=== PATIENT | male | born 1960 | race Caucasian/White ===

== ENCOUNTER 2022-07-03 07:16 | Inpatient (IN) | payer MEDICAID, OTHER ==
[2022-07-03 08:12] LABS: #Lymphocytes 0.7 thou/uL (1.20-3.40); #Monocytes 0.3 thou/uL (0.11-0.59); #Neutrophils 8.2 thou/uL (1.40-6.50); %Eosinophils 0.4 % (0.0-10.0); %Lymphocytes 7.6 % (21.0-51.0); %Monocytes 3.7 % (0.0-10.0); %Neutrophils 88.3 % (42.0-75.0); Hemoglobin 14.3 g/dL (14.0-18.0); Mean Corpuscular HGB CONC 33.7 g/dL (32.0-36.0); Mean Corpuscular Hemoglobin 32.1 pg (27.0-31.0); Mean Corpuscular Volume 95.5 fl (78.0-98.0); Mean Platelet Volume 8.2 fL (7.4-10.4); Platelet Count 147 10x3/uL (130-400); RBC Distribution Width 12.5 % (11.5-14.5); Red Blood Cell (RBC) Count 4.45 mill/uL (4.70-6.10); White Blood Cell (WBC) Count 9.3 10x3/uL (4.8-10.8)
[2022-07-03 08:32] LABS: Acetaminophen Less than 10.0 mcg/mL (10.0-30.0); Alcohol Less than 10 mg/dL (Less than 10); Salicylate Less than 8.0 mg/dL (15.0-30.0)
[2022-07-03 08:33] LABS: ALT (SGPT) 33 U/L (8-55); AST (SGOT) 26 U/L (5-34); Albumin 4.2 g/dL (3.4-4.8); Alkaline Phosphatase 121 U/L (40-110); Anion Gap 14 mmol/L (10-20); BUN (Urea Nitrogen) 14 mg/dL (8.4-25.7); Bilirubin, Total 0.7 mg/dL (0.2-1.2); Calc. Creatinine Clearance 0 mL/min (70-130); Carbon Dioxide 24 mmol/L (23-31); Chloride 104 mmol/L (98-107); Estimated GFR 95; Globulin 2.5 g/dL (2.4-3.5); Glucose 107 mg/dL (80-115); Protein, Total 6.7 g/dL (5.8-8.1); Sodium 138 mmol/L (136-145)
[2022-07-03 09:09] LABS: INR-International Normal Ratio 1.1; Prothrombin Time 14.3 sec (12.0-14.7)
[2022-07-03 09:10] LABS: PTT 29.6 sec (22.9-36.1)
[2022-07-03] MEDS ORDERED: Morphine 2 MG/ML VIAL SLOW IVP PRN (12:39)
[2022-07-03] MEDS ORDERED: Ipratropium/Albuterol 3 ML NEB NEB PRN (12:39)
[2022-07-03] MEDS ORDERED: Ondansetron PF 4 MG/2 ML Vial IVP PRN (12:39)
[2022-07-03] MEDS ORDERED: Metoprolol Tartrate 25 MG TAB ONE (13:48)
[2022-07-03] MEDS ORDERED: Acetaminophen 325 MG TAB ONE (13:48)
[2022-07-03] MEDS ORDERED: Boostrix 0.5 ML (Tdap) VIAL (>/=7 yrs of age) ONE (13:48)
[2022-07-03] MEDS: Sodium Chloride 0.9% 1,000 ML IV SCH ×2 (13:57→22:00)
[2022-07-03] MEDS: Acetaminophen 325 MG TAB PO SCH ×2 (13:57→21:59)
[2022-07-03] MEDS ORDERED: Metoprolol Tartrate 25 MG TAB PO SCH (14:00)
[2022-07-03] MEDS ORDERED: traMADol HCl 50 MG TAB PO PRN (14:31)
[2022-07-03 14:55] LABS: Bilirubin Negative (Negative); Blood, Urine Negative (Negative); Clarity Clear (Clear); Glucose, Urine (Dipstick) Normal (Negative); Ketone, Urine Negative (Negative); Leukocyte Negative Leu/uL (Negative); Nitrite Negative (Negative); Protein, Urine (Dipstick) Negative (Neg-Trace); Urobilinogen Normal mg/dL (Less than 2)
[2022-07-03 14:58] LABS: Amphetamine Not Detected (NotDetected); Barbiturates Screen Not Detected (NotDetected); Benzodiazepine Screen Not Detected (NotDetected); Cocaine Metabolite Screen Not Detected (NotDetected); Methadone Not Detected (NotDetected); Methamphetamine Not Detected (NotDetected); Opiate Screen Not Detected (NotDetected); Oxycodone Screen Not Detected (NotDetected); Phencyclidine (PCP) Not Detected (NotDetected); THC/Cannabinoid Screen Not Detected (NotDetected); Tricyclic Screen Not Detected (NotDetected)
[2022-07-03] MEDS ORDERED: TETANUS, DIPHTHERIA TOX,ADULT (TDVAX) 0.5 ML VIAL IM ONE (15:00)
[2022-07-03] MEDS: traMADol HCl 50 MG TAB PO SCH ×2 (17:56→22:01)
[2022-07-03] MEDS: Aripiprazole 10 MG TAB PO SCH (22:00)
[2022-07-03] MEDS: Famotidine/PF 20 mg/2ml Vial SLOW IVP SCH (22:00)
[2022-07-03] MEDS: Benztropine 1 MG TAB PO SCH (22:00)
[2022-07-03] MEDS: Senokot S 8.6-50 MG TAB PO SCH (22:00)
[2022-07-03] MEDS: Melatonin 3 MG TAB PO SCH (22:00)
[2022-07-03] MEDS: Metoprolol Tartrate 25 MG TAB PO SCH (22:00)
[2022-07-03 22:06] VITALS: BMI 24.7
[2022-07-03] MEDS ORDERED: hydrALAZINE 20 MG/ML VIAL SLOW IVP PRN (23:01)
[2022-07-04] MEDS ORDERED: Labetalol HCl 100 MG/20 ML VIAL SLOW IVP SCH (01:00)
[2022-07-04] MEDS: Acetaminophen 325 MG TAB PO SCH ×4 (02:04→20:22)
[2022-07-04 05:56] LABS: #Lymphocytes 0.9 thou/uL (1.20-3.40); #Monocytes 0.8 thou/uL (0.11-0.59); %Basophils 0.2 % (0.0-1.0); %Eosinophils 0.3 % (0.0-10.0); %Lymphocytes 10.4 % (21.0-51.0); %Monocytes 9.5 % (0.0-10.0); %Neutrophils 79.6 % (42.0-75.0); Hemoglobin 13.6 g/dL (14.0-18.0); Mean Corpuscular HGB CONC 33.5 g/dL (32.0-36.0); Mean Corpuscular Hemoglobin 32.2 pg (27.0-31.0); Mean Platelet Volume 8.3 fL (7.4-10.4); Platelet Count 140 10x3/uL (130-400); RBC Distribution Width 12.4 % (11.5-14.5); Red Blood Cell (RBC) Count 4.24 mill/uL (4.70-6.10); White Blood Cell (WBC) Count 8.8 10x3/uL (4.8-10.8)
[2022-07-04] MEDS: traMADol HCl 50 MG TAB PO SCH ×5 (05:57→23:34)
[2022-07-04] MEDS: Sodium Chloride 0.9% 1,000 ML IV SCH ×2 (05:57→14:27)
[2022-07-04 06:14] LABS: Anion Gap 9 mmol/L (10-20); BUN (Urea Nitrogen) 10 mg/dL (8.4-25.7); Calc. Creatinine Clearance 132 mL/min (70-130); Calcium 8.2 mg/dL (7.8-10.44); Carbon Dioxide 22 mmol/L (23-31); Chloride 108 mmol/L (98-107); Estimated GFR 102; Glucose 105 mg/dL (80-115); Magnesium 1.7 mg/dL (1.6-2.6); Phosphorus 2.5 mg/dL (2.3-4.7); Potassium 3.7 mmol/L (3.5-5.1); Sodium 135 mmol/L (136-145)
[2022-07-04] MEDS ORDERED: CEFAZOLIN 2 GM in Sodium Chloride 0.9% 100 ML IVPB SCH (07:30)
[2022-07-04] MEDS: Metoprolol Tartrate 25 MG TAB PO SCH ×2 (09:00→20:23)
[2022-07-04] MEDS: Senokot S 8.6-50 MG TAB PO SCH ×2 (09:00→20:23)
[2022-07-04] MEDS: Famotidine/PF 20 mg/2ml Vial SLOW IVP SCH ×2 (09:00→20:22)
[2022-07-04] MEDS: Benztropine 1 MG TAB PO SCH ×2 (09:00→20:22)
[2022-07-04] MEDS: Polyethylene Glycol 3350 17 GM Packet PO SCH (09:00)
[2022-07-04] MEDS: Haloperidol 5 MG TAB PO SCH ×3 (17:00→20:22)
[2022-07-04] MEDS: Melatonin 3 MG TAB PO SCH (20:22)
[2022-07-04] MEDS: Aripiprazole 10 MG TAB PO SCH (20:22)
[2022-07-05] MEDS: Acetaminophen 325 MG TAB PO SCH ×4 (03:10→21:55)
[2022-07-05] MEDS: traMADol HCl 50 MG TAB PO SCH ×4 (07:39→23:46)
[2022-07-05] MEDS: Senokot S 8.6-50 MG TAB PO SCH ×2 (09:04→21:56)
[2022-07-05] MEDS: Benztropine 1 MG TAB PO SCH ×2 (09:04→21:55)
[2022-07-05] MEDS: Famotidine/PF 20 mg/2ml Vial SLOW IVP SCH ×2 (09:04→21:55)
[2022-07-05] MEDS: Polyethylene Glycol 3350 17 GM Packet PO SCH (09:04)
[2022-07-05] MEDS: Metoprolol Tartrate 25 MG TAB PO SCH ×2 (09:04→21:55)
[2022-07-05] MEDS: Haloperidol 5 MG TAB PO SCH ×3 (09:04→21:55)
[2022-07-05] MEDS ORDERED: fentaNYL PF 100 MCG/2 ML SYRINGE ONE (12:35)
[2022-07-05] MEDS ORDERED: CEFAZOLIN 2 GM VIAL ONE (13:19)
[2022-07-05] MEDS ORDERED: Sodium Chloride 0.9% 100 ML ONE (13:19)
[2022-07-05] MEDS ORDERED: NEOSTIGMINE 3 MG/3 ML SYR 3 MG/3 ML SYRINGE ONE (13:35)
[2022-07-05] MEDS ORDERED: PROPOFOL 200 MG/20 ML VIAL ONE (13:35)
[2022-07-05] MEDS ORDERED: PHENYLEPHRINE-NS 100 MCG/ML 10 ML SYRINGE ONE (13:35)
[2022-07-05] MEDS ORDERED: Lidocaine 1% PF 5 ML VIAL ONE (13:35)
[2022-07-05] MEDS ORDERED: Succinylcholine Chloride 100 MG/5 ML SYRINGE FS ONE (13:35)
[2022-07-05] MEDS ORDERED: Lidocaine 2% PF 5 ML VIAL ONE (13:35)
[2022-07-05] MEDS ORDERED: Metoprolol Tartrate 5 MG/5 ML VIAL ONE (13:35)
[2022-07-05] MEDS ORDERED: Ondansetron PF 4 MG/2 ML Vial ONE (13:35)
[2022-07-05] MEDS ORDERED: Esmolol 100 MG/10 ML VIAL ONE (13:35)
[2022-07-05] MEDS ORDERED: Rocuronium Bromide 10 MG/ML (10ML VIAL) ONE (13:35)
[2022-07-05] MEDS ORDERED: metFORMIN 500 MG TAB ONE (13:35)
[2022-07-05] MEDS ORDERED: Ondansetron HCl/PF 4 MG/2 ML Vial IVP PRN (14:50)
[2022-07-05] MEDS ORDERED: Promethazine HCl 25 MG/ML VIAL IM PRN (14:50)
[2022-07-05] MEDS: CEFAZOLIN 2 GM in Sodium Chloride 0.9% 100 ML IVPB SCH (21:26)
[2022-07-05] MEDS: Melatonin 3 MG TAB PO SCH (21:55)
[2022-07-05] MEDS: Aripiprazole 10 MG TAB PO SCH (21:55)
[2022-07-06] MEDS: Acetaminophen 325 MG TAB PO SCH ×4 (02:25→20:57)
[2022-07-06] MEDS: CEFAZOLIN 2 GM in Sodium Chloride 0.9% 100 ML IVPB SCH (05:07)
[2022-07-06] MEDS: traMADol HCl 50 MG TAB PO SCH ×4 (05:12→23:21)
[2022-07-06 05:58] LABS: #Lymphocytes 0.8 thou/uL (1.20-3.40); #Monocytes 1.4 thou/uL (0.11-0.59); #Neutrophils 11.2 thou/uL (1.40-6.50); %Monocytes 10.7 % (0.0-10.0); %Neutrophils 83.2 % (42.0-75.0); Mean Corpuscular HGB CONC 34.2 g/dL (32.0-36.0); Mean Corpuscular Hemoglobin 32.9 pg (27.0-31.0); Mean Corpuscular Volume 96.3 fl (78.0-98.0); Mean Platelet Volume 8.5 fL (7.4-10.4); Platelet Count 139 10x3/uL (130-400); RBC Distribution Width 12.3 % (11.5-14.5); Red Blood Cell (RBC) Count 3.95 mill/uL (4.70-6.10); White Blood Cell (WBC) Count 13.5 10x3/uL (4.8-10.8)
[2022-07-06 06:17] LABS: Anion Gap 11 mmol/L (10-20); BUN (Urea Nitrogen) 17 mg/dL (8.4-25.7); Calc. Creatinine Clearance 116 mL/min (70-130); Calcium 7.8 mg/dL (7.8-10.44); Carbon Dioxide 22 mmol/L (23-31); Chloride 102 mmol/L (98-107); Estimated GFR 98; Glucose 134 mg/dL (80-115); Magnesium 1.7 mg/dL (1.6-2.6); Phosphorus 3.5 mg/dL (2.3-4.7); Potassium 4.3 mmol/L (3.5-5.1); Sodium 131 mmol/L (136-145)
[2022-07-06] MEDS: Metoprolol Tartrate 25 MG TAB PO SCH ×2 (08:22→20:59)
[2022-07-06] MEDS: Haloperidol 5 MG TAB PO SCH ×3 (08:22→20:59)
[2022-07-06] MEDS: Benztropine 1 MG TAB PO SCH ×2 (08:23→20:59)
[2022-07-06] MEDS: Tamsulosin HCl 0.4 MG CAP PO SCH (08:23)
[2022-07-06] MEDS: Famotidine/PF 20 mg/2ml Vial SLOW IVP SCH (08:30)
[2022-07-06] MEDS: Senokot S 8.6-50 MG TAB PO SCH ×2 (08:31→20:59)
[2022-07-06] MEDS: Polyethylene Glycol 3350 17 GM Packet PO SCH (08:31)
[2022-07-06] MEDS: Aripiprazole 10 MG TAB PO SCH (20:59)
[2022-07-06] MEDS: Melatonin 3 MG TAB PO SCH (20:59)
[2022-07-07] MEDS: Acetaminophen 325 MG TAB PO SCH ×2 (01:07→10:43)
[2022-07-07] MEDS: traMADol HCl 50 MG TAB PO SCH (05:14)
[2022-07-07 07:02] LABS: #Lymphocytes 0.5 thou/uL (1.20-3.40); #Monocytes 0.9 thou/uL (0.11-0.59); #Neutrophils 11.2 thou/uL (1.40-6.50); %Basophils 0.1 % (0.0-1.0); %Eosinophils 0.1 % (0.0-10.0); %Lymphocytes 3.7 % (21.0-51.0); %Monocytes 7.2 % (0.0-10.0); %Neutrophils 88.9 % (42.0-75.0); Hemoglobin 11.4 g/dL (14.0-18.0); Mean Corpuscular HGB CONC 34.7 g/dL (32.0-36.0); Mean Corpuscular Hemoglobin 32.8 pg (27.0-31.0); Mean Corpuscular Volume 94.6 fl (78.0-98.0); Mean Platelet Volume 8.4 fL (7.4-10.4); Platelet Count 114 10x3/uL (130-400); Red Blood Cell (RBC) Count 3.48 mill/uL (4.70-6.10); White Blood Cell (WBC) Count 12.5 10x3/uL (4.8-10.8)
[2022-07-07] MEDS: Tamsulosin HCl 0.4 MG CAP PO SCH (08:28)
[2022-07-07] MEDS: Haloperidol 5 MG TAB PO SCH (08:28)
[2022-07-07] MEDS: Metoprolol Tartrate 25 MG TAB PO SCH (08:28)
[2022-07-07] MEDS: Benztropine 1 MG TAB PO SCH (08:29)
[2022-07-07 08:39] VITALS: BP 160/79; TEMP 98.4
[2022-07-07] MEDS: Polyethylene Glycol 3350 17 GM Packet PO SCH (10:44)
[2022-07-07] MEDS: Senokot S 8.6-50 MG TAB PO SCH (10:44)
== END 2022-07-07 10:10 | DRG 522 ==
LOC: ERS 07:16 → ERHOLD 09:19 → SURG B 20:57
PROVIDERS: ADMIT Surgery; ATTEND Surgery
PROC: 0SRR0JA Replacement of Right Hip Joint, Femoral Surface with Synthetic Substitute, Uncemented, Open Approach (ICD-10-PCS; principal; 2022-07-05)
DX: S72.091A Other fracture of head and neck of right femur, initial encounter for closed fracture (principal); F20.0 Paranoid schizophrenia; I48.91 Unspecified atrial fibrillation; N18.9 Chronic kidney disease, unspecified; R33.9 Retention of urine, unspecified; Z20.822 Contact with and (suspected) exposure to COVID-19; W18.39XA Other fall on same level, initial encounter; Z23 Encounter for immunization; Z79.899 Other long term (current) drug therapy; Z79.01 Long term (current) use of anticoagulants
CPT/HCPCS: 36415; 71045; 72170; 80048; 80053; 80306; 80307; 81003; 83735; 83880; 84100; 84484; 85025; 85610; 85730; 90714; 90715; 93005; C1776; G0390; J0360; J2001; J2405; J2704; J3490; J7050; S0028; U0003; U0005